=== PATIENT | female | born 1975 | race Hispanic/Latino ===

== ENCOUNTER → 2024-04-10 | Outpatient (CLI) | payer OTHER ==
[~2024-04-10] VITALS: Ht 12.7 cm; Wt 170.4 kg
[2024-04-10 08:44] LABS: BASOPHILS # (AUTO) 0.04 K/uL (0.00-0.20); BASOPHILS % (AUTO) 0.5 % (0.0-5.0); EOSINOPHILS # (AUTO) 0.17 K/uL (0.00-0.70); EOSINOPHILS % (AUTO) 2.2 % (0.0-8.0); HEMATOCRIT 44.7 % (36-48); IMMATURE GRANULOCYTE ABSOLUTE 0.02 K/uL (0-1); LYMPHOCYTES # (AUTO) 2.4 K/uL (1.0-4.8); LYMPHOCYTES % (AUTO) 31.1 % (21.0-51.0); MEAN CORPUSCULAR HEMOGLOBIN 27.4 pg (27.0-33.0); MEAN CORPUSCULAR HGB CONC 31.5 g/dL (32.0-36.0); MEAN CORPUSCULAR VOLUME 86.8 fL (79-99); MONOCYTES # (AUTO) 0.4 K/uL (0.1-1.0); MONOCYTES % (AUTO) 5.7 % (3.0-13.0); NEUTROPHILS # (AUTO) 4.7 K/uL (1.8-7.7); NEUTROPHILS % (AUTO) 60.2 % (40.0-77.0); PLATELET COUNT (AUTO) 177 K/uL (130-400); RED BLOOD CELL COUNT(AUTO) 5.15 MIL/uL (4.00-5.50); RED CELL DISTRIBUTION WIDTH 13.6 % (11.0-15.5); WHITE BLOOD COUNT (AUTO) 7.8 K/uL (4.8-10.8)
[2024-04-10 08:50] LABS: HEMOGLOBIN A1C 11.3 % (4.0-6.0)
[2024-04-10 08:55] LABS: % IRON SATURATION 18.8 % (22-44)
[2024-04-10 09:22] LABS: BILIRUBIN,TOTAL 0.6 mg/dL (0.2-1.0); CREATININE 0.8 mg/dL (0.5-1.0); MAGNESIUM 1.8 mg/dL (1.80-2.40); POTASSIUM 3.8 mmol/L (3.5-5.1)
[2024-04-10 09:23] LABS: THYROID STIMULATING HORMONE 1.46 uIU/mL (0.36-3.74)
== END ==
LOC: DTH 15:39 → EDUNIT# 16:00
PROVIDERS: ATTEND Surgery
DX: E66.01 Morbid (severe) obesity due to excess calories (principal); G47.33 Obstructive sleep apnea (adult) (pediatric); I10 Essential (primary) hypertension; M19.91 Primary osteoarthritis, unspecified site; E11.9 Type 2 diabetes mellitus without complications; Z71.3 Dietary counseling and surveillance
CPT/HCPCS: 36415; 71045; 80053; 80061; 82306; 82607; 82746; 83036; 83540; 83550; 83735; 84207; 84425; 84439; 84443; 84446; 84481; 84590; 84630; 85025; 93005; 97802

== ENCOUNTER → 2024-04-10 | Outpatient (CLI) | payer OTHER | END | disposition home or self-care (01) | LOC: LAB 07:48 | PROVIDERS: ATTEND Surgery | DX: G47.33 Obstructive sleep apnea (adult) (pediatric) (principal); E11.9 Type 2 diabetes mellitus without complications; I10 Essential (primary) hypertension; M19.91 Primary osteoarthritis, unspecified site | CPT/HCPCS: 36415; 71045; 80053; 80061; 82306; 82607; 82746; 83036; 83540; 83550; 83735; 84207; 84425; 84439; 84443; 84446; 84481; 84590; 84630; 85025; 93005 ==

== ENCOUNTER 2024-05-15 09:06 | Day surgery (SDC) | payer OTHER ==
[2024-05-15] VITALS (11 sets, daily range): BP systolic 139–155; BP diastolic 78–97; PULSE 65–79; RESP 15–20
[~2024-05-15] VITALS: Ht 165.1 cm; Wt 159.7 kg
[~2024-05-15 09:06] MED LIST: LISI20TA24 PO; METF-444 PO
[2024-05-15] MEDS: 0.9%NACL 1000ML 1,000 ML IV ONE (10:57)
[2024-05-15] MEDS ORDERED: KETAMINE 50MG/ML SYRINGE 50 MG/ML DISP.SYRIN ONE (12:09)
[2024-05-15] MEDS ORDERED: PROPOFOL 10 MG/ML 20ML VIAL IV ONE ×2 (12:09→12:14)
== END 2024-05-15 13:48 | disposition home or self-care (01) ==
LOC: DAH 09:06 → ENDO 09:06
PROVIDERS: ATTEND Surgery
DX: R12 Heartburn (principal); K29.70 Gastritis, unspecified, without bleeding; K22.89 Other specified disease of esophagus; B96.81 Helicobacter pylori [H. pylori] as the cause of diseases classified elsewhere; M15.9 Polyosteoarthritis, unspecified; I10 Essential (primary) hypertension; E11.9 Type 2 diabetes mellitus without complications; E66.01 Morbid (severe) obesity due to excess calories; Z79.84 Long term (current) use of oral hypoglycemic drugs; Z79.899 Other long term (current) drug therapy; Z68.43 Body mass index [BMI] 50.0-59.9, adult
CPT/HCPCS: 81025; 82948 ×2; 43239; J7030 ×2; J2704 ×2; J3490; A4620; A4215 ×2; A4223; A4657; A7002; A4222; A4221; A4663; A4606

== ENCOUNTER → 2025-08-03 | Outpatient (CLI) | payer OTHER ==
[~2025-08-03] MED LIST changes: -METF-444 PO
== END | disposition home or self-care (01) ==
LOC: RAH 10:56
PROVIDERS: ATTEND Nurse Practitioner Family
DX: Z12.31 Encounter for screening mammogram for malignant neoplasm of breast (principal)
CPT/HCPCS: 77067

== ENCOUNTER → 2025-08-21 | Outpatient (CLI) | payer OTHER ==
[2025-08-21 13:14] LABS: CREATININE 0.8 mg/dL (0.5-1.0); GLOMERULAR FILTR. RATE CALC 91.0 mL/min (>90); UREA NITROGEN, BLOOD 13.0 mg/dL (7-18)
== END | disposition home or self-care (01) ==
LOC: LAB 10:49
PROVIDERS: ATTEND Internal Medicine Gastroenterology
DX: K74.69 Other cirrhosis of liver (principal)
CPT/HCPCS: 36415; 82565; 84520

== ENCOUNTER → 2025-08-26 | Outpatient (CLI) | payer OTHER ==
[~2025-08-26] MED LIST changes: +GADOTERATE MEGLUMINE 10 MMOL/20 ML VIAL IV ONE
--- NOTE | 2025-08-26 16:51 | HMCIMG ---
EXAM: MR Abdomen with and without Intravenous Contrast. CLINICAL HISTORY: K74.69 Other cirrhosis of liver TECHNIQUE: Multisequence, multiplanar magnetic resonance images of the abdomen with and without intravenous contrast. Series acquired: 3 - COR SSFSE ARC - TR: 670.1 - TE: 87.6 - ET: 1.0 - Thk: 5.0 6 - AX 3D DUALECHO BH - TR: 6.5 - TE: 2.1 - ET: 1.0 - Thk: 4.4 7 - AX SSFSE BH ARC - TR: 621.6 - TE: 89.2 - ET: 1.0 - Thk: 5.0 9 - AX T2 FRFSE FATSAT CATRACHITO ARC - TR: 96807.0 - TE: 107.9 - ET: 18.0 - Thk: 4.0 10 - AX DWI B=500 FB - TR: 3400.0 - TE: 59.0 - ET: 1.0 - Thk: 6.0 12 - G+ COR LAVA ARC - TR: 3.6 - TE: 1.7 - ET: 1.0 - Thk: 4.4 1100 - AX LAVA DYN 5 PHASE - TR: 4.5 - TE: 1.9 - ET: 1.0 - Thk: 4.4 1101 - PH1/AX LAVA DYN 5 PHASE - TR: 4.5 - TE: 1.9 - ET: 1.0 - Thk: 4.4 1102 - PH2/AX LAVA DYN 5 PHASE - TR: 4.5 - TE: 1.9 - ET: 1.0 - Thk: 4.4 1103 - PH3/AX LAVA DYN 5 PHASE - TR: 4.5 - TE: 1.9 - ET: 1.0 - Thk: 4.4 1104 - PH4/AX LAVA DYN 5 PHASE - TR: 4.5 - TE: 1.9 - ET: 1.0 - Thk: 4.4 1105 - PH5/AX LAVA DYN 5 PHASE - TR: 4.5 - TE: 1.9 - ET: 1.0 - Thk: 4.4 1106 - FT: PH1/AX LAVA DYN 5 PHASE - TR: 4.5 - TE: 1.9 - ET: 1.0 - Thk: 20.0 CONTRAST: COMPARISON: None provided. FINDINGS: LOWER THORAX: No pleural effusion. LIVER: No focal mass or abnormal enhancement. No evidence of portal hypertension.. GALLBLADDER AND BILE DUCTS: No gallstone seen. No biliary ductal dilatation is evident. Common bile duct at the ampulla is 3 mm. PANCREAS: Unremarkable. No ductal dilation. SPLEEN: Unremarkable. ADRENALS: Unremarkable. KIDNEYS: The kidneys appear within normal limits. No hydronephrosis or mass evident. STOMACH AND BOWEL: Limited evaluation of the stomach and bowel demonstrates no acute process. LYMPH NODES: No lymphadenopathy is evident. VASCULATURE: No abdominal aortic aneurysm. IMPRESSION: No acute intra-abdominal abnormality. No obvious stigmata of cirrhosis /[place]
== END | disposition home or self-care (01) ==
LOC: RAH 10:43
PROVIDERS: ATTEND Internal Medicine Gastroenterology
DX: K74.69 Other cirrhosis of liver (principal)
CPT/HCPCS: 74183; A9575